=== PATIENT | female | born 1995 | race Caucasian/White ===

== ENCOUNTER 2017-12-28 21:20 | Emergency (ER) | payer OTHER ==
[~2017-12-28] VITALS: Ht 154.9 cm; Wt 101.6 kg
[~2017-12-28 21:20] MED LIST: AMBEREN; CEPHALEXIN 250250 M1 PO; KEFLEX500 MG PO; PHENERGAN 25 MG25 M1 PO; PRENATAL + DHA1 EACH PO; PROZAC 20 MG20 M1 PO
[2017-12-28] MEDS ORDERED: THERAFLU FLU &1 EAC1 PO (21:28)
[2017-12-28] MEDS ORDERED: DIPHENHIST50 MG PO (21:29)
[2017-12-28] MEDS ORDERED: XANAX 0.5 MG0.5 MG PO (21:29)
[2017-12-28] MEDS ORDERED: ACCUNEB SO1.25 MG/1 INH (21:31)
[2017-12-28] MEDS ORDERED: DOXYCYCLINE 10100 MG PO (22:27)
[2017-12-28] MEDS ORDERED: PREDNISONE 10 M10 MG PO (22:27)
[2017-12-28] MEDS ORDERED: TESSALON PERLE100 MG PO (22:27)
[2017-12-28] MEDS ORDERED: VENTOLIN HFA 1818 GM INH (22:27)
[2017-12-28 22:34] VITALS: BP 133/78
== END 2017-12-28 22:35 | disposition home or self-care (01) ==
LOC: M.ERS 21:20
DX: J40 Bronchitis, not specified as acute or chronic (principal); F31.9 Bipolar disorder, unspecified; F17.210 Nicotine dependence, cigarettes, uncomplicated